=== PATIENT | male | born 1995 | race Caucasian/White ===

== ENCOUNTER 2024-11-25 22:41 | Emergency (ER) | payer MEDICAID, OTHER ==
[~2024-11-25] VITALS: Ht 162.6 cm; Wt 83.8 kg
--- NOTE | 2024-11-25 23:03 | ED.PDOC ---
General HPI Comments 29-year-old male came to emergency room due to testicular pain. Patient states for the past 3 days, left testicular pain and swelling, associated with hematuria, nausea, vomiting and diarrhea. Persistence of swelling prompted patient to come to the ER Chief Complaint: Testicle Time Seen by MD: 23:00 Primary Care Provider: marianelaies Reviewed notes: Nurses Notes Allergies: Coded Allergies: NO KNOWN ALLERGIES (Unverified , 06/28/14) Information Source: Patient Mode of Arrival: Ambulatory Severity: Moderate Inability to void: None Timing: Days Duration: Intermittent Has not urinated for: Minutes Onset: Spontaneous Symptoms: Hematuria History of: None Location male: L Scrotum associated signs and symptoms: Nausea, Vomiting, Hematuria Past Medical History PAST MEDICAL HISTORY: Denies Surgical History: Denies all surgeries Family History Family History: Reviewed,noncontributory to illness Social History Smoker: Cigarettes Alcohol: Denies ETOH Use Drugs: Marijuana Lives In: Home Constitutional: denies: chills, diaphoresis, fatigue, fever, malaise, sweats, weakness, others EENTM: denies: blurred vision, double vision, ear bleeding, ear discharge, ear drainage, ear pain, ear ringing, eye pain, eye redness, hearing loss, mouth pain, mouth swelling, nasal discharge, nose bleeding, nose congestion, nose pain, photophobia, tearing, throat pain, throat swelling, voice changes, others Respiratory: denies: cough, hemoptysis, orthopnea, SOB at rest, shortness of b reath, SOB with excertion, stridor, wheezing, others Cardiovascular: denies: chest pain, dizzy spells, diaphoresis, Dyspnea on exertion, edema, irregular heart beat, left arm pain, lightheadedness, palpitations, PND, syncope, others Gastrointestinal: reports: diarrhea, nausea, vomiting; denies: abdomen distended, abdominal pain, blood streaked bowels, constipated, dysphagia, difficulty swallowing, hematemesis, melena, poor appetite, poor fluid intake, rectal bleeding, rectal pain, others Genitourinary: reports: hematuria, testicle pain (left), testicle swelling (left); denies: burning, dysuria, flank pain, frequency, incontinence, penile discharge, penile sore, pain, urgency, others Neurological: denies: dizziness, fainting, headache, left sided numbness, left sided weakness, numbness, paresthesia, pre-existing deficit, right sided numbness, right sided weakness, seizure, speech problems, tingling, tremors, weakness, others Musculoskeletal: denies: back pain, gout, joint pain, joint swelling, muscle pain, muscle stiffness, neck pain, others Integumetry: denies: bruises, change in color, change in hair/nails, dryness, laceration, lesions, lumps, rash, wounds, others Allergic/Immunocompromised: denies: Difficulty Healing, Frequent Infections, Hives, Itching, others Hematologic/Lymphatic: denies: anemia, blood clots, easy bleeding, easy bruisi ng, swollen glands, others Endocrine: denies: excessive hunger, excessive sweating, excessive thirst, exce ssive urination, flushing, intolerance to cold, intolerance to heat, unexplained weight gain, unexplained weight loss, others Psychiatric: denies: anxiety, bipolar disorder, depression, hopeless, panic disorder, schizophrenia, sleepless, suicidal, others Physical Exam General Appearance: No Apparent Distress, Normal HEENT: Normal ENT Inspection, Pharynx Normal, TMs Normal Neck: Full Range of Motion, Non-Tender, Normal, Normal Inspection Respiratory: Chest Non-Tender, Lungs Clear, No Accessory Muscle Use, No Respi ratory Distress, Normal Breath Sounds Cardiovascular: No Edema, No JVD, No Murmur, No Gallop, Normal Peripheral Pulses, Regular Rate/Rhythm Breast Exam: Deferred Gastrointestinal: No Organomegaly, Non Tender, No Pulsatile Mass, Normal Bowel Sounds, Soft Genitalia: Testicle (Left testicular swelling and redness) Pelvic: Deferred Rectal: Deferred Extremities: No calf tenderness, Normal capillary refill, Normal inspection, Normal range of motion, Non-tender, No pedal edema Musculoskeletal : Apperance: Normal Neurologic: Alert, vice president of business development II-XII nml as Tested, No Motor Deficits, Normal Affect, Normal Mood, No Sensory Deficits Cerebellar Function: Normal Reflexes: Normal Skin: Dry, Normal Color, Warm Lymphatic: No Adenopathy Was a procedure done? Was a procedure done?: No Differential Diagnosis Kidney stone (Female): N/A Kidney stone (Male): Strain, Urinary obstruction, Urolithiasis, Renal infarct ion, Urinary tract infection Penile/Scrotal: Epidiymitis, UTI, Hydrocele, Testicular Torsion Urinary Problem (Male): Urethritis, Urinary Retention, Urolithiasis, UTI X-Ray, Labs, Meds, VS Vital Signs Date Time Temp Pulse Resp B/P (MAP) Pulse Ox O2 Delivery O2 Flow Rate FiO2 11/26/24 02:02 88 20 98 Room Air 11/26/24 01:46 99.4 88 20 116/75 (89) 98 99.4 11/25/24 22:59 99.0 97 20 119/76 (90) 96 Lab Test 11/26/24 01:40 Range/Units Urine Color Yellow Yellow Urine Clarity Turbid H Clear Urine pH 6.0 5.0-9.0 Urine Specific Sanders 1.032 1.001-1.035 Urine Protein 1+ H Negative Urine Ketones 2+ H Negative Urine Blood Trace H Negative /uL Urine Nitrite Negative Negative Urine Bilirubin Negative Negative Urine Urobilinogen 2 H Negative mg/dL Urine Leukocyte Esterase 3+ Negative /uL Urine RBC 11 0 - 3 /hpf Urine Microscopic WBC 676 H 0-3 /HPF Urine Squamous Epithelial Cells None seen <5 /hpf Urine Bacteria None seen None Seen /hpf Urine Mucus Few None Seen Urine Glucose Normal Normal mg/dL Chlamydia trachomatis (ERUM) Pending Neisseria gonorrhoeae (ERUM) Pending Current Medications Medications (Trade) Dose Ordered Sig/Loe Route Start Time Stop Time Status Last Admin Doxycycline Monohydrate (Vibramycin Tablet) 100 mg ONCE ONCE PO 11/26/24 01:00 11/26/24 01:08 DC 11/26/24 01:43 Ceftriaxone Sodium (Rocephin) 1,000 mg ONCE ONCE IM 11/26/24 01:45 11/26/24 01:46 DC 11/26/24 01:58 ULTRASOUND SCROTUM CLINICAL INDICATION: left testicular pain and swelling TECHNIQUE: High resolution scrotal ultrasound was performed with a linear transducer with duplex doppler and workforce services representative images acquired. Color Doppler with spectral analysis was performed/attempted of the testes. COMPARISON: None FINDINGS: Right testicle: Normal in size, measuring 4.6 x 2.4 x 2.4 cm. The testicular parenchyma is homogeneous. No testicular mass. Normal intratesticular blood flow. The right epididymis appears normal. Small hydrocele. Left testicle: Normal in size, measuring 3.9 x 2.7 x 2.7 cm. The testicular par enchyma is homogeneous. No testicular mass. Normal intratesticular blood flow. Heterogeneity and increased vascularity of the left epididymal tail. Small hydrocele. IMPRESSION: 1. Normal testicles without torsion. 2. Left epididymitis. 3. Trace bilateral hydroceles. Time of 1ST Reevaluation: 22:56 Reevaluation 1ST: Unchanged Patient Education/Counseling: Diagnosis, Treatment Family Education/Counseling: No Family Present Departure 1 Departure Time of Disposition: 02:31 (Patient has left epididymitis we will discharge home with antibiotics.) Impression: Primary Impression: Left epididymitis Disposition: 01 HOME / SELF CARE / HOMELESS Condition: Stable Additional Instructions: You have a an infection of your testicle. You were prescribed antibiotics. Please take as directed. You can take Tylenol Motrin as needed for pain. It is important that he follow up with the regular doctor within 1 week to ensure you are doing better. If your symptoms worsen or you have any other concerns then please return to the emergency room. e-Prescriptions Doxycycline Hyclate (DOXYCYCLINE HYCLATE) 100 Mg Tab 1 TAB PO BID for 7 Days, #14 TAB Prov: ISHAN QUIROGA MD 11/26/24 Discharged With: Self Critical Care Note Critical Care Time?: No Stability Stability form required: No Heart Score Heart Score: Heart Score Response (Comments) Value History N/A 0 EKG N/A 0 Age N/A 0 Risk Factors N/A 0 Troponin N/A 0 Total 0 I personally scribed for ISHAN QUIROGA MD (NICOLA) on 11/25/24 at 23:03. Electronically submitted by Renato Fisher ([employer]). I personally scribed for ISHAN QUIROGA MD (NICOLA) on 11/26/24 at 01:16. Electronically submitted by Renato Fisher ([employer]). ISHAN QUIROGA MD Nov 25, 2024 23:03
--- NOTE | 2024-11-26 00:30 | DVH ---
ULTRASOUND SCROTUM CLINICAL INDICATION: left testicular pain and swelling TECHNIQUE: High resolution scrotal ultrasound was performed with a linear transducer with duplex dopp ler and financial services sales representative images acquired. Color Doppler with spectral analysis was performed/attempted of the testes. COMPARISON: None FINDINGS: Right testicle: Normal in size, measuring 4.6 x 2.4 x 2.4 cm. The testicular parenchyma is homogeneou s. No testicular mass. Normal intratesticular blood flow. The right epididymis appears normal. Small hydrocele. Left testicle: Normal in size, measuring 3.9 x 2.7 x 2.7 cm. The testicular parenchyma is homogeneous . No testicular mass. Normal intratesticular blood flow. Heterogeneity and increased vascularity of the left epididymal tail. Small hydrocele. IMPRESSION: 1. Normal testicles without torsion. 2. Left epididymitis. 3. Trace bilateral hydroceles.
[2024-11-26] MEDS: cefTRIAXone W LIDOCAINE 1 GM IM IM ONE (01:43)
[2024-11-26] MEDS: DOXYCYCLINE 100 MG TAB/CAP PO ONE (01:43)
[2024-11-26 01:46] VITALS: BP 116/75; TEMP 99.4
[2024-11-26] MEDS: LIDOCAINE 1% HCL (LOCAL ANESTH.) INJ 20ML MDV IJ ONE (01:57)
[2024-11-26] MEDS: cefTRIAXone SOD 1,000 MG VL IM ONE (01:58)
[2024-11-26 02:02] VITALS: PULSE 88; RESP 20; O2SAT 98
[2024-11-26 02:03] LABS: Urine Bacteria None Seen /hpf (None Seen)
[2024-11-26 02:13] LABS: Urine Blood TRACE /uL (Negative); Urine Clarity Turbid (Clear); Urine Color Yellow (Yellow); Urine Mucus FEW (None Seen); Urine Protein, UAD 1+ (Negative); Urine Specific Gravity 1.032 (1.001-1.035); Urine Squamous Epithelial Cell None Seen /hpf (<5); Urine Urobilinogen 2 mg/dL (Negative); Urine WBC 676 /HPF (0-3)
[2024-11-26] MEDS ORDERED: DOXY-286 PO (02:32)
[2024-11-28 06:06] LABS: Chlamydia Trachomatis, NAA Negative (Negative); Neisseria gonorrhoeae, NAA Positive (Negative)
== END 2024-11-26 02:42 | disposition home or self-care (01) ==
LOC: ER 22:41
DX: N45.1 Epididymitis (principal); F17.210 Nicotine dependence, cigarettes, uncomplicated
CPT/HCPCS: 76870; 81001; 87491; 87591; 96372; 99285; J0696; J2003

== ENCOUNTER 2025-08-09 08:32 | Emergency (ER) | payer MEDICAID ==
[~2025-08-09] VITALS: Ht 167.6 cm; Wt 73.3 kg
[~2025-08-09 08:32] MED LIST: DOXY-286 PO
[2025-08-09 08:34] VITALS: TEMP 98.7
--- NOTE | 2025-08-09 09:42 | ED.PDOC ---
Eye-HPI HPI Comments Reji Green Is a 30-year-old male, with no relevant past medical history. The patient came to the ED with chief complain of 3 days of toothache, 6/10, continues, dull pain; associated with gum swelling. Today, the pain increases to 8/10 and the swelling increase, this prompted his visit to the ED. The patient denies fever, chills, discharge from the swelling, headache or other symptoms. Chief Complaint: Tooth Pain Time Seen by MD: 08:39 Primary Care Provider: saray Reviewed Notes: Nurses Notes, Medications, Allergies Allergies: Coded Allergies: NO KNOWN ALLERGIES (Unverified , 06/28/14) Home Meds Active Scripts Doxycycline Hyclate (DOXYCYCLINE HYCLATE) 100 Mg Tab, 1 TAB PO BID for 7 Days, #14 TAB Prov:ISHAN QUIROGA MD 11/26/24 Information Source: Patient Mode of Arrival: Ambulatory Timing: Days Duration: Since onset Quality: Pain Past Medical History PAST MEDICAL HISTORY: Denies Surgical History: Denies all surgeries Family History Family History: Reviewed,noncontributory to illness Social History Smoker: Cigarettes Alcohol: Denies ETOH Use Drugs: Marijuana Lives In: Home Constitutional: denies: chills, diaphoresis, fatigue, fever, malaise, sweats, weakness, others EENTM: reports: mouth pain Respiratory: denies: cough, hemoptysis, orthopnea, SOB at rest, shortness of breath, SOB with excertion, stridor, wheezing, others Cardiovascular: denies: chest pain, dizzy spells, diaphoresis, Dyspnea on exertion, edema, irregular heart beat, left arm pain, lightheadedness, palpitations, PND, syncope, others Gastrointestinal: denies: abdomen distended, abdominal pain, blood streaked bowels, constipated, diarrhea, dysphagia, difficulty swallowing, hematemesis, melena, nausea, poor appetite, poor fluid intake, rectal bleeding, rectal pain, vomiting, others Genitourinary: denies: burning, dysuria, flank pain, frequency, hematuria, incontinence, penile discharge, penile sore, pain, testicle pain, testicle swelling, urgency, others Neurological: denies: dizziness, fainting, headache, left sided numbness, left sided weakness, numbness, paresthesia, pre-existing deficit, right sided numbness, right sided weakness, seizure, speech problems, tingling, tremors, weakness, others Musculoskeletal: denies: back pain, gout, joint pain, joint swelling, muscle pain, muscle stiffness, neck pain, others Integumetry: denies: bruises, change in color, change in hair/nails, dryness, laceration, lesions, lumps, rash, wounds, others Allergic/Immunocompromised: denies: Difficulty Healing, Frequent Infections, Hives, Itching, others Hematologic/Lymphatic: denies: anemia, blood clots, easy bleeding, easy bruising, swollen glands, others Endocrine: denies: excessive hunger, excessive sweating, excessive thirst, excessive urination, flushing, intolerance to cold, intolerance to heat, unexplained weight gain, unexplained weight loss, others Psychiatric: denies: anxiety, bipolar disorder, depression, hopeless, panic disorder, schizophrenia, sleepless, suicidal, others Physical Exam General Appearance: No Apparent Distress, Normal HEENT: Other (Lower mollar missing with gum erythema and swelling, hard and t ambrose to the palpation. ) Neck: Full Range of Motion, Non-Tender, Normal, Normal Inspection Respiratory: Chest Non-Tender, Lungs Clear, No Accessory Muscle Use, No Respiratory Distress, Normal Breath Sounds Cardiovascular: No Edema, No JVD, No Murmur, No Gallop, Normal Peripheral Pulses, Regular Rate/Rhythm Breast Exam: Deferred Gastrointestinal: No Organomegaly, Non Tender, No Pulsatile Mass, Normal Bowel Sounds, Soft Genitalia: Deferred Pelvic: Deferred Rectal: Deferred Extremities: No calf tenderness, Normal capillary refill, Normal inspection, Normal range of motion, Non-tender, No pedal edema Musculoskeletal : Apperance: Normal Neurologic: Alert, thread spinner II-XII nml as Tested, No Motor Deficits, Normal Affect, Normal Mood, No Sensory Deficits Cerebellar Function: Normal Reflexes: Normal Skin: Dry, Normal Color, Warm Lymphatic: No Adenopathy Was a procedure done? Was a procedure done?: No EENT DIFF Eye: Other Ear: N/A Nose: N/A Mouth: Other (Cavities and molar abscess) Sore Throat: N/A Other Differential Diagnosis #Dental abscess #Gingivitis #Cavities X-Ray, Labs, Meds, VS Vital Signs Date Time Temp Pulse Resp B/P (MAP) Pulse Ox O2 Delivery O2 Flow Rate FiO2 10/7/25 08:34 98.7 79 16 123/81 97 98.7 X-Ray, Labs, Meds, VS Comment Time of 1ST Reevaluation: 09:40 Reevaluation 1ST: Unchanged Patient Education/Counseling: Diagnosis, Treatment, Prognosis, Need For Follow Up Family Education/Counseling: No Family Present SEPSIS Sepsis Screen Date sepsis recognized/suspect: Aug 09, 2025 Time Sepsis recognized/suspect: 08 Recent Procedure: No On Antibiotic Therapy: No Respiratory Rate >20: No Heart Rate >90: No Temp<36 C (96.8 F) or >38.3 C: No SBP <90 or MAP <65 mmHG: No New Acute Mental Status Change: No Is the patient on CPAP, BIPAP,: No Vital Signs Date Time Temp Pulse Resp B/P (MAP) Pulse Ox O2 Delivery O2 Flow Rate FiO2 08/09/25 08:34 98.7 79 16 123/81 97 98.7 Departure 1 Departure Time of Disposition: 09:42 Impression: Primary Impression: Dental abscess Additional Impressions: Dental cavities Gingivitis due to dental plaque Disposition: 01 HOME / SELF CARE / HOMELESS Condition: Good Referrals F/U with dentist Additional Instructions: Please read all instructions provided in this packet carefully. You MUST follow-up with your primary care/family doctor in 1 to 2 days. If you are unable to see your primary care/family doctor, please return to our emergency room for re-assessment and re-evaluation in 1 to 2 days. Return to the emergency room here in our facility or to the nearest ER [facility] if your symptoms change or worsen. CONSULTATIONS: you MUST Follow-up for consultation as soon as possible with: Dentist in 1-2 days. You MUST call the consultants office yourself to make an appointment. You may need to arrange that through your insurance and/or your primary/family doctor. If you are unable to see the senior talent management consultant in 1 to 2 days, you must return to our emergency room (or any other ER of your choice) for re-assessment and re- evaluation. Adequate fluid hydration. Motrin 600 mg po bid for pain Although you have been discharged from the Emergency Department, this does not mean that you have a "clean bill of health". No definitive diagnosis for your symptoms has been made today. It is possible that you are in the process of developing a serious illness. This is why you must return to the ED without fail if any new or worsening symptoms develop. Discharged With: Self Comments Goals of care discussed with the patient > 35 min. Discussed plan of care with Dr. Quiroga Code status: Full code PCP: No established yet, discharge clinic was recommended Plan discussed with: Patient, the patient agrees with the plan. Critical Care Note Critical Care Time?: No Stability Stability form required: No Heart Score Heart Score: Heart Score Response (Comments) Value History N/A 0 EKG N/A 0 Age N/A 0 Risk Factors N/A 0 Troponin N/A 0 Total 0 ANNABEL HERNANDEZ RESIDENT Aug 09, 2025 09:42
[2025-08-09] MEDS ORDERED: AUG875T PO (09:43)
[2025-08-09 09:49] VITALS: BP 127/82; PULSE 72; RESP 18; O2SAT 97
== END 2025-08-09 09:52 | disposition home or self-care (01) ==
LOC: ER 08:32
DX: K04.7 Periapical abscess without sinus (principal); K05.10 Chronic gingivitis, plaque induced; F17.210 Nicotine dependence, cigarettes, uncomplicated; Z79.899 Other long term (current) drug therapy